=== PATIENT | male | born 1955 | race Two or more races ===

== ENCOUNTER 2025-09-08 22:04 | Inpatient (IN) | payer OTHER, MEDICARE ==
[~2025-09-08] VITALS: Ht 170.2 cm; Wt 95.0 kg
--- NOTE | 2025-09-08 22:13 | ELECTROCARDIOGRAPH REPORT ---
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
[2025-09-08] MEDS: normal saline 1000ML IV soln IVB ONE (22:19)
--- NOTE | 2025-09-08 22:27 | Physician Documentation ---
History of Present Illness General Chief Complaint: Syncope Stated Complaint: SYNCOPE Time Seen by MD: 22:20 History of Present Illness Initial Comments THE PATIENT IS A 70-YEAR-OLD MALE brought in by EMS for low blood pressure and confusion. Patient states when he returned from work around 1700 tonight he has a fevers, when his family returned this evening they found him unresponsive on the floor. EMS found the patient to have a low blood pressure and diaphoretic and he received a L of fluids prior to arrival in the emergency department. Patient denies any chest pain or shortness of breath he describes the rigors and a fever this evening. Patient has a history of hypertension patient's symptoms are moderate and persistent. Patient denies any cardiac history Medication Reconciliation Allergies: Coded Allergies: No Known Allergies (Unverified , 09/08/25) Scheduled Amlodipine* (Norvasc*), 2 TAB PO DAILY, (Reported) Losartan Potassium* (Cozaar*), 4 TAB PO DAILY, (Reported) Past Medical History Past Medical History: Hypertension Review of Systems All Other Systems at this time: Reviewed and Negative Physical Exam Physical Exam Vital Signs: Temperature: 99.9, Heart Rate: 91, Respiratory Rate: 14, BP: 104/61, Pulse Oximetry: 97, Weight: 95.000 Physical Exam VITALS: Reviewed and as above. GENERAL: Alert, no apparent distress. HEENT: Normocephalic, atraumatic, PERRL, EOMI, dry mucosa, no erythema RESPIRATORY: Lungs clear, normal breath sounds, no respiratory distress. CHEST: No accessory muscle use, no retractions CV: Regular rate, rhythm, no edema, no murmur, No: JVD GI: Soft, non-tender, bowels sounds present, no rebound, guarding, or rigidity BACK: No CVA tenderness, or swelling MUSCULOSKELETAL: No deformities, no edema SKIN: Warm and dry, no rash NEURO: Oriented x4, No motor or sensory deficit PSYCH: Normal mood and affect, no agitation Progress Progress Note Patient: KATHERIN CARREON Medical Record: [id number] [facility] : 1955, Age: 70 Sex: Male Location: ER Patient Status: REG ER Service Date/Time: 09/09/25219 Ordering Physician: PAGE WHARTON MD Exam: CTA CHEST CT ABD PELVIS History: hypotension Comparison: None TECHNIQUE: Using a slice CT scanner volumetric data acquisition of chest, abdomen and pelvis was obtained following intravenous administration of intravenous 100 ml contrast without any reported adverse effects. Axial images were reconstructed and additional sagittal and coronal images were reformatted. 3D/MIP images were performed and reviewed for reporting. Radiation Dose Information: CT Dose: CTDI volume is 30.48 mGy. Dose-length product is 2421.4 mGy*cm Findings: Vascular: There is normal caliber of thoracic and abdominal aorta without evidence of aortic dissection, intramural hematoma or aneurysm. Atherosclerotic vascular ca lcifications. Visualized supra-aortic arteries are widely patent without a focal stenosis or aneurysm. The mesenteric, and bilateral renal, iliac and femoral arteries are widely patent without any focal stenosis or aneurysm. Chest: Pulmonary Arteries: There are no filling defects within main pulmonary arteries. There is normal dimensional of main PA. Lungs: There is no peripheral pulmonary infarction, consolidation, pleural effusion, or right heart strain. There is no pneumothorax or pneumomediastinum. Moderate bilateral lower lobe atelectasis. Aorta: There is normal caliber of thoracic aorta without evidence of aortic dissection, intramural hematoma or aneurysm. Lymph Nodes: There is no significant intrathoracic or axillary lymphadenopathy on CT size criteria. Lower Neck: Visualized portions of the thyroid gland are unremarkable. Mediastinum: Heart size is normal. There is no pericardial effusion. Musculoskeletal: No aggressive focal bony lesions, acute fractures or dislocation. Chest wall: Unremarkable Abdomen and Pelvis: Liver: The liver is normal in size. Hepatic steatosis. No focal lesions. Normal hepatic vascular enhancement. Gallbladder and Biliary Tree: Mild gallbladder distention and wall thickening versus pericholecystic edema. Spleen: Unremarkable Pancreas: The pancreas is normal in appearance without focal lesions or abnormal enhancement. Adrenal Glands: Unremarkable Kidneys: Kidneys demonstrate normal symmetric enhancement without focal lesions, calculi or hydronephrosis. Bladder: Unremarkable Bowel: Small sliding-type hiatal hernia. The stomach is grossly normal in appearance. Small bowel and colon are normal in caliber and distribution. The appendix is not visualized; however, no secondary findings of acute appendicitis identified. Ascites: Absent Lymphadenopathy: No mesenteric, retroperitoneal or periportal lymphadenopathy. Abdominal Wall and Mesentery: Unremarkable. Vasculature: The visualized abdominal aorta is normal in size and caliber. Atherosclerotic vascular calcifications. Abdominal and pelvic vessels demonstrate normal enhancement. Pelvic Organs: The prostate is enlarged, measuring 5.8 cm transverse. Bilateral fat containing inguinal hernias. Musculoskeletal: No aggressive focal bony lesions, acute fractures or di slocation. IMPRESSION: 1. No evidence of acute aneurysm, dissection, or intramural hematoma. 2. No evidence of pulmonary embolism. 3. Mild gallbladder distention and wall thickening versus pericholecystic edema. 4. Hepatic steatosis. 5. Small sliding-type hiatal hernia. 6. Prostatomegaly. Electronically Signed by:JAMEY URIBE MD Date & Time: 09/09/25322 Dictated by: JAMEY URIBE MD Dictation date and time: 09/09/25322 Primary Care Provider: NO PRIMARY CARE PROVIDER cc: PAGE WHARTON MD ~ Results/Orders Results/Orders Orders - PAGE WHARTON MD Culture Blood (09/08/25 22:10) Chest,Single View (09/08/25 22:10) Monitor (09/08/25 22:10) Oxygen (09/08/25 22:10) Saline Lock (09/08/25 22:10) Straight Cath For Urine Sample (09/08/25 22:10) Cta Chest Ct Abd Pelvis (09/09/25 02:20) Ct Head (09/09/25 02:20) Page Hospitalist (09/09/25 04:43) Fill Out Med Reconciliation (09/09/25 04:43) Completed Orders - PAGE WHARTON MD Cbc/Diff (09/08/25 22:10) Chest,Single View (09/08/25 22:10) Electrocardiogram (09/08/25 22:10) Procalcitonin (09/08/25 22:10) BMP (09/08/25 22:10) Hs Troponin I W Calculations (09/08/25 22:10) Hs Troponin I W Calculations (09/09/25 00:10) Hs Troponin I W Calculations (09/09/25 01:10) Lacticsepsis (09/08/25 22:10) Normal Saline 1000ml (0.9% Sodium Chlori (09/08/25 22:15) Ceftriaxone 2gm/D5w 50ml Bag (Rocephin 2 (09/08/25 22:50) Aspirin 81mg Chew Tablet (Aspirin 81mg C (09/08/25 23:25) Lactic,2hr (09/09/25 00:06) Normal Saline 1000ml (0.9% Sodium Chlori (09/09/25 00:25) Ua W/Microscopic, Cult If Ind (09/08/25 23:31) Dexamethasone Inj (Decadron 10mg/Ml Inj) (09/09/25 00:50) D-Dimer (09/09/25 00:51) Stat Ekg (09/09/25 ) Normal Saline 1000ml (0.9% Sodium Chlori (09/09/25 01:05) Normal Saline 1000ml (0.9% Sodium Chlori (09/09/25 01:30) Cta Chest Ct Abd Pelvis (09/09/25 02:20) Iohexol 350mg/Ml 100ml (Omnipaque 350mg/ (09/09/25 01:48) Ct Head (09/09/25 02:20) Man Diff (09/08/25 22:18) TSH (09/09/25 02:42) Glycopyrrolate Inj (Robinul Inj) (09/09/25 02:45) Calcium Gluconate Inj. (Calcium Gluconat (09/09/25 03:00) Cbc/Diff (09/09/25 03:30) Lacticsepsis (09/09/25 03:30) Calcium Gluc 1gm/50ml Nacl,Iso (Calcium (09/09/25 03:25) Calcium Gluc 1gm/50ml Nacl,Iso (Calcium (09/09/25 03:33) Glucagon, Human Recombinant (Glucagen In (09/09/25 04:10) Normal Saline 1000ml (0.9% Sodium Chlori (09/09/25 04:20) Vital Signs 09/08/25 09/08/25 09/08/25 09/08/25 22:06 22:23 22:30 23:30 Temp 99.9 Pulse 91 88 87 Resp 14 16 16 18 B/P (MAP) 104/61 112/61 (78) 102/66 (78) Pulse Ox 97 98 97 O2 Flow Rate 0 0 09/09/25 09/09/25 09/09/25 00:30 01:35 02:06 Pulse 89 73 81 Resp 16 18 16 B/P (MAP) 88/51 (63) 84/52 (63) 92/56 (68) Pulse Ox 96 95 97 O2 Flow Rate 0 0 0 Laboratory Tests Test 09/08/25 22:18 09/08/25 23:31 09/09/25 00:20 09/09/25 00:48 White Blood Count 2.5 L Red Blood Count 4.27 L Hemoglobin 13.0 L Hematocrit 38.1 L Mean Corpuscular Volume 89.3 Mean Corpuscular Hemoglobin 30.5 Mean Corpuscular Hemoglobin Concent 34.1 Red Cell Distribution Width 13.5 Platelet Count 130 L Mean Platelet Volume 9.0 Neutrophils (%) (Auto) 87.6 H Lymphocytes (%) (Auto) 11.1 L Monocytes (%) (Auto) 0.5 L Eosinophils (%) (Auto) 0.3 Basophils (%) (Auto) 0.5 Neutrophils # (Auto) 2.2 Lymphocytes # (Auto) 0.3 L Monocytes # (Auto) 0.0 Eosinophils # (Auto) 0.0 Basophils # (Auto) 0.0 CBC Comment Differential Total Cells Counted 100 Neutrophils % (Manual) 80.0 H Lymphocytes % (Manual) 15.0 L Monocytes % (Manual) 4.0 Eosinophils % (Manual) 1.0 Platelet Estimate Decreased Red Blood Cell Morphology Normal Basophilic Stippling Sodium Level 143 Potassium Level 3.4 L Chloride Level 111 H Carbon Dioxide Level 20.4 L Anion Gap 12 Blood Urea Nitrogen 20 H Creatinine 1.34 H Estimated GFR/1.73 m2 53 BUN/Creatinine Ratio 14.9 Glucose Level 102 Lactic Acid Level 5.2 *H 3.6 H Calcium Level 7.5 L Troponin I High Sensitivity 150 *H 502 *H 501 *H Albumin 2.9 L Procalcitonin 1.93 H Chemistry Comments Urine Specimen Description Voided Urine Color Yellow Urine Clarity Clear Urine pH 6.0 Urine Specific [place] 1.010 Urine Protein 30 H Urine Glucose (UA) Negative Urine Ketones Negative Urine Occult Blood Trace-intact Urine Nitrite Negative Urine Bilirubin Negative Urine Urobilinogen 0.2 Urine Leukocyte Esterase Negative Urine RBC 0-2 Urine WBC 0-4 Urine Squamous Epithelial Cells None seen Urine Bacteria Few Urine Culture Indicated Not ind Volume Urine Centrifuged 10 ml Urine Comment Troponin I High Sens Percent Delta 234 0 Troponin I Hi Sens Absolute Change 352 -1 Thyroid Stimulating Hormone (TSH) 2.57 Test 09/09/25 01:02 09/09/25 04:15 D-Dimer 5.11 H D-Dimer Comment White Blood Count 10.6 Red Blood Count 3.95 L Hemoglobin 12.0 L Hematocrit 35.6 L Mean Corpuscular Volume 90.0 Mean Corpuscular Hemoglobin 30.3 Mean Corpuscular Hemoglobin Concent 33.7 Red Cell Distribution Width 14.1 Platelet Count 104 L Mean Platelet Volume 9.3 Neutrophils (%) (Auto) 92.3 H Lymphocytes (%) (Auto) 4.3 L Monocytes (%) (Auto) 3.1 Eosinophils (%) (Auto) 0.1 Basophils (%) (Auto) 0.2 Neutrophils # (Auto) 9.8 H Lymphocytes # (Auto) 0.4 L Monocytes # (Auto) 0.3 Eosinophils # (Auto) 0.0 Basophils # (Auto) 0.0 CBC Comment Lactic Acid Level 3.7 H Microbiology Date/Time Source Procedure Growth Status 09/08/25 22:21 Blood Hand Right Blood Culture - Preliminary Positive Culture Resulted EKG/XRAY/CT/US/VASC/MRI Chest X-Ray : Additional Comments Patient: KATHERIN CARREON Medical Record: [id number] [facility] : 1955, Age: 70 Sex: Male Location: ER Patient Status: REG ER Service Date/Time: 09/08/252209 Ordering Physician: PAGE WHARTON MD Exam: CHEST,SINGLE VIEW EXAM: DI CHEST,SINGLE VIEW CLINICAL HISTORY: SYNCOPE TECHNIQUE: Single AP view of the chest WID: COMPARISON: None FINDINGS: Lines and tubes: None Chest: The heart size and pulmonary vasculature is within normal limits. No pleural effusion, pneumothorax, or consolidation. The osseous structures are grossly intact. Multilevel thoracic spondylosis. IMPRESSION: 1. No acute cardiopulmonary abnormality. Electronically Signed by:MOHINDER BAINS MD Date & Time: 09/08/252236 Dictated by: MOHINDER BAINS MD Dictation date and time: 09/08/252228 Primary Care Provider: NO PRIMARY CARE PROVIDER cc: PAGE WHARTON MD ~ CT : Impression Patient: KATHERIN CARREON Medical Record: [id number] [facility] : 1955, Age: 70 Sex: Male Location: ER Patient Status: [facility] ER Service Date/Time: 09/09/25219 Ordering Physician: PAGE WHARTON MD Exam: CT HEAD EXAM: CT CT HEAD INDICATION: SYNCOPE TECHNIQUE: CT of the head without intravenous contrast. Radiation Dose : 1. Head: CT Dose: CTDI volume is 65.41 mGy. Dose-length product is 1233.59 mGy*cm The dose indicators for CT are the volume Computed Tomography (CT) Dose Index (CTDIvol) and the Dose Length Product (DLP), and are measured in units of mGy and mGy-cm, respectively. These indicators are not patient dose, but values generated from the CT scanner acquisition factors. The report includes radiation exposure data for exposures received during this examination. COMPARISON: None FINDINGS: There is no evidence of acute intracranial hemorrhage, extra-axial collection, mass effect, midline shift, herniation or hydrocephalus. The ventricles, sulci and cisterns are age appropriate. The woods-white differentiation is intact. Patchy periventricular and subcortical white matter hypoattenuation is nonspecific but may be related to small vessel ischemic disease. The visualized paranasal sinuses and mastoid air cells are clear. The surrounding soft tissues and osseous structures are unremarkable. IMPRESSION: 1. No acute intracranial abnormality. Radiation optimization: All CT scans at this facility use at least one of these dose optimization techniques: automated exposure control mA and/or kV adjustment per patient size (includes targeted exams where dose is matched to clinical indication) or iterative reconstruction. Electronically Signed by:JAMEY URIBE MD Date & Time: 09/09/25239 Dictated by: JAMEY URIBE MD Dictation date and time: 09/09/25239 Primary Care Provider: NO PRIMARY CARE PROVIDER cc: PAGE WHARTON MD ~ Medical Decision Making Additional information obtaine: old records Findings Patient is a 12 lead EKG demonstrates normal sinus rhythm rate of [address] abnormalities and normal axis the time of the interpretation was 01/13/2009 EKG was interpreted has a borderline EKG. The patient presents to the emergency department after being found initially unresponsive by family EM on EMS arrival the patient had no radial pulses but did have a carotid pulse was breathing on his own and was found to be hypotensive the patient was given IV fluids and his mental status improved. The patient denied any active chest pain he states he felt febrile and was having rigors prior to the episode of becoming unresponsive. The patient denies any shortness of breath or chest pain. The patient has had significant and persistent hypotension without any tachycardia. The patient was given IV fluids 5 L here in the emergency department he was also given calcium as well as glucagon on the off chance that he took too many of his amlodipine and this would be contributing to his hypotension he was also given a dose of ceftriaxone for possible septic shock. There was no obvious source of infection on exam his lungs were clear the patient does appear to have an slightly elevated procalcitonin initially had a low white blood cell count repea t WBCs have increased he however has not produced a source of infection at this time the patient will be admitted to the hospitalist for lactic acidosis and hypotension case has been discussed with the hospitalist pulses nuclear monitoring technician was interpreted as a sinus rhythm. His pulse oximetry was interpreted as normal and adequate Differential Diagnosis Dehydration, cardiogenic shock, septic shock, Departure Impression: Primary Impression: Syncope Qualified Codes: R55 - Syncope and collapse Additional Impressions: Lactic acidosis Hypotension Qualified Codes: I95.9 - Hypotension, unspecified Referrals: NO PRIMARY CARE PROVIDER (PCP) Critical Care Note Total Time (mins): 90 Critical Care Note The very real possibility of a deterioration of this patient's condition required the highest level of my preparedness for sudden, emergent intervention. I provided critical care services, which included medication orders, frequent reevaluations of the patient's condition and response to treatment, ordering and reviewing test results, and discussing the case with various consultants. Excludes time spent performing separately billable procedures. The critical care time associated with the care of the patient was 90 minutes. Signature Scribe Signature: No scribe Attestation: The note accurately reflects work and decisions made by me.Page Wharton MD 09/10/25 03:54 PAGE WHARTON MD Sep 08, 2025 22:27
[2025-09-08 22:40] LABS: MEAN PLATELET VOLUME 9.0 FL (7.4-10.4); RED CELL DISTRIBUTION WIDTH 13.5 % (11.5-14.5)
--- NOTE | 2025-09-08 22:40 | RADIOLOGY REPORT ---
EXAM: DI CHEST,SINGLE VIEW CLINICAL HISTORY: SYNCOPE TECHNIQUE: Single AP view of the chest WID: COMPARISON: None FINDINGS: Lines and tubes: None Chest: The heart size and pulmonary vasculature is within normal limits. No pleural effusion, pneumothorax, or consolidation. The osseous structures are grossly intact. Multilevel thoracic spondylosis. IMPRESSION: 1. No acute cardiopulmonary abnormality.
[2025-09-08 22:55] LABS: CREATININE 1.34 MG/DL (0.60-1.10); TOTAL CARBON DIOXIDE 20.4 MMOL/L (24-32); eCRCL 49 ML/MIN; eGFR 53 ML/MIN
[2025-09-08] MEDS: CefTRIAXone 2gm/D5W 50ml BAG 50 ML IV ONE (23:09)
[2025-09-08 23:54] LABS: LEUKOCYTE ESTERASE ,URINE NEGATIVE (Neg); NITRITES, URINE NEGATIVE (Neg); OCCULT BLOOD,URINE TRACE-INTACT (Neg)
[2025-09-09] MEDS: normal saline 1000ML IV soln IVB ONE ×4 (00:24→04:44)
[2025-09-09 00:38] LABS: UA COLLECTION TYPE VOIDED
[2025-09-09 00:41] LABS: SQUAMOUS EPITHELIAL CELL,UR NONE SEEN /LPF (FEW)
--- NOTE | 2025-09-09 01:01 | ELECTROCARDIOGRAPH REPORT ---
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
[2025-09-09] MEDS: dexamethasone sod phosphate 10mg/ml inj IV STA (01:05)
[2025-09-09 02:36] LABS: EOSINOPHILS % (MANUAL) 1.0 % (0-6); LYMPHOCYTES % (MANUAL) 15.0 % (21-51); MONOCYTES % (MANUAL) 4.0 % (2-12); NEUTROPHILS % (MANUAL) 80.0 % (42-75)
[2025-09-09 02:37] LABS: PLATELET ESTIMATE DECREASED
--- NOTE | 2025-09-09 02:42 | RADIOLOGY REPORT ---
EXAM: CT CT HEAD INDICATION: SYNCOPE TECHNIQUE: CT of the head without intravenous contrast. Radiation Dose : 1. Head: CT Dose: CTDI volume is 65.41 mGy. Dose-length product is 1233.59 mGy*cm The dose indicators for CT are the volume Computed Tomography (CT) Dose Index (CTDIvol) and the Dose Length Product (DLP), and are measured in units of mGy and mGy-cm, respectively. These indicators are not patient dose, but values generated from the CT scanner acquisition factors. The report includes radiation exposure data for exposures received during this examination. COMPARISON: None FINDINGS: There is no evidence of acute intracranial hemorrhage, extra-axial collection, mass effect, midline shift, herniation or hydrocephalus. The ventricles, sulci and cisterns are age appropriate. The woods-white differentiation is intact. Patchy periventricular and subcortical white matter hypoattenuation is nonspecific but may be related to small vessel ischemic disease. The visualized paranasal sinuses and mastoid air cells are clear. The surrounding soft tissues and osseous structures are unremarkable. IMPRESSION: 1. No acute intracranial abnormality. Radiation optimization: All CT scans at this facility use at least one of these dose optimization techniques: automated exposure control mA and/or kV adjustment per patient size (includes targeted exams where dose is matched to clinical indication) or iterative reconstruction.
[2025-09-09] MEDS: glycopyrrolate 0.2mg/ml inj IV ONE (02:52)
[2025-09-09] MEDS ORDERED: calcium gluconate inj. 3 GM in normal saline 100ml IV soln 100 ML IV ONE (03:00)
[2025-09-09] MEDS ORDERED: CALCIUM GLUC 1gm/50ml NACL,iso 50 ML IV ONE (03:25)
--- NOTE | 2025-09-09 03:26 | RADIOLOGY REPORT ---
History: hypotension Comparison: None TECHNIQUE: Using a slice CT scanner volumetric data acquisition of chest, abdomen and pelvis was obtained following intravenous administration of intravenous 100 ml contrast without any reported adverse effects. Axial images were reconstructed and additional sagittal and coronal images were reformatted. 3D/MIP images were performed and reviewed for reporting. Radiation Dose Information: CT Dose: CTDI volume is 30.48 mGy. Dose-length product is 2421.4 mGy*cm Findings: Vascular: There is normal caliber of thoracic and abdominal aorta without evidence of aortic dissection, intramural hematoma or aneurysm. Atherosclerotic vascular calcifications. Visualized supra-aortic arteries are widely patent without a focal stenosis or aneurysm. The mesenteric, and bilateral renal, iliac and femoral arteries are widely patent without any focal stenosis or aneurysm. Chest: Pulmonary Arteries: There are no filling defects within main pulmonary arteries. There is normal dimensional of main PA. Lungs: There is no peripheral pulmonary infarction, consolidation, pleural effusion, or right heart strain. There is no pneumothorax or pneumomediastinum. Moderate bilateral lower lobe atelectasis. Aorta: There is normal caliber of thoracic aorta without evidence of aortic dissection, intramural hematoma or aneurysm. Lymph Nodes: There is no significant intrathoracic or axillary lymphadenopathy on CT size criteria. Lower Neck: Visualized portions of the thyroid gland are unremarkable. Mediastinum: Heart size is normal. There is no pericardial effusion. Musculoskeletal: No aggressive focal bony lesions, acute fractures or dislocation. Chest wall: Unremarkable Abdomen and Pelvis: Liver: The liver is normal in size. Hepatic steatosis. No focal lesions. Normal hepatic vascular enhancement. Gallbladder and Biliary Tree: Mild gallbladder distention and wall thickening versus pericholecystic edema. Spleen: Unremarkable Pancreas: The pancreas is normal in appearance without focal lesions or abnormal enhancement. Adrenal Glands: Unremarkable Kidneys: Kidneys demonstrate normal symmetric enhancement without focal lesions, calculi or hydronephrosis. Bladder: Unremarkable Bowel: Small sliding-type hiatal hernia. The stomach is grossly normal in appearance. Small bowel and colon are normal in caliber and distribution. The appendix is not visualized; however, no secondary findings of acute appendicitis identified. Ascites: Absent Lymphadenopathy: No mesenteric, retroperitoneal or periportal lymphadenopathy. Abdominal Wall and Mesentery: Unremarkable. Vasculature: The visualized abdominal aorta is normal in size and caliber. Atherosclerotic vascular calcifications. Abdominal and pelvic vessels demonstrate normal enhancement. Pelvic Organs: The prostate is enlarged, measuring 5.8 cm transverse. Bilateral fat containing inguinal hernias. Musculoskeletal: No aggressive focal bony lesions, acute fractures or dislocation. IMPRESSION: 1. No evidence of acute aneurysm, dissection, or intramural hematoma. 2. No evidence of pulmonary embolism. 3. Mild gallbladder distention and wall thickening versus pericholecystic edema. 4. Hepatic steatosis. 5. Small sliding-type hiatal hernia. 6. Prostatomegaly.
[2025-09-09] MEDS: CALCIUM GLUC 1gm/50ml NACL,iso 50 ML IV SCH (03:42)
[2025-09-09 04:35] LABS: MEAN PLATELET VOLUME 9.3 FL (7.4-10.4); RED CELL DISTRIBUTION WIDTH 14.1 % (11.5-14.5)
[2025-09-09] MEDS: glucagon, human recombinant 1mg kit IM ONE (04:45)
[2025-09-09] MEDS ORDERED: potassium Cl 40MEQ/1/2NS 520ml 520 ML IV PRN (06:10)
[2025-09-09] MEDS ORDERED: potassium Cl 20 mEq SR tablet PO PRN (06:10)
[2025-09-09] MEDS ORDERED: magnesium Cl slow-release 64mg tablet PO PRN (06:10)
[2025-09-09] MEDS ORDERED: magnesium sulf-water 4G/100mL 100 ML IV PRN (06:10)
[2025-09-09] MEDS ORDERED: magnesium sulf-water 2g/50mL 50 ML IV PRN (06:10)
--- NOTE | 2025-09-09 06:21 | HISTORY AND PHYSICAL-Residence ---
History & Physical Providers to CC Resident Creating Document: MARCELLA CHEATHAMDEIRDRE ~ History of Present Illness Reason for Admit\Complaint: hypotension, syncope History of Present Illness 70 years old male with history of hypertension brought to the ED by EMS due to syncope. Patient reported yesterday morning he did not feel good and he had shivering and chills, came back home and took two ibuprofen and went to bed when he woke up he was on the floor. is on the bedside and reported they was not at home and when they came back they found him on the floor, sweating and confused they called EMS and the systolic blood pressure reported 70, no any tongue biting or urinary or stool incontinency reported. Patient got his conscious after 20-30 minutes. Patient denied any chest pain shortness of breaths abdominal pain any changing in urinary habits or bowel movement. He is taking lisinopril and amlodipine for blood pressure medication otherwise he is not taking any medication. He denied recent travel, any sick contact. Allergies: Coded Allergies: No Known Allergies (Unverified , 09/08/25) Past Medical History Past Medical History Hypertension Past Surgical History Surgical History Comment Herniorrhaphy 2020 Appendectomy Family History Family History: FH: dementia (Father,) FH: diabetes mellitus (Moderate,) Past Social History Smoking: Quit greater than 1 year (Quit smoking 40 years ago, smoked for about 10 years) Alcohol Use: Rarely Drug Use: None ROS ROS Constitutional: Chills and shivering HEENT: No blurring of the vision, No sore throat, epistaxis, tinnitus Cardiovascular: no chest pain/discomfort, palpitations, no syncope. No pedal edema Respiratory: No sob, cough,, hemoptysis Gastrointestinal: no abdominal pain, no nausea, vomiting. no diarrhea, no constipation, melena. Genitourinary: No frquency, urgency, incontinence, nocturia. No dysuria, hematuria Musculoskeletal: No arthralgia, myalgia Endocrine: No polydipsia, polyuria. No heat or cold intolerance Neurologic: Syncope as HPI Psychiatric: No hallucinations/delusions, no anhedonia, no suicidal ideation\ Hematologic: No bleeding or bruises Exam Vitals: Vital Signs Date Time Temp Pulse Resp B/P (MAP) Pulse Ox O2 Delivery O2 Flow Rate FiO2 09/09/25 02:06 81 16 92/56 (68) 97 0 09/08/25 22:06 99.9 General: General: Awake and Alert, no acute distress. HEENT: Conjunctiva pink, Sclera clear, Mucus Membranes moist. Neck: Supple without masses and tenderness. Resp: Lungs clear to auscultation bilaterally. Heart: Regular Rate and rhythm, normal S1 and S2 Abdomen: Soft and non tender no organomegaly Extremities: No cyanosis,clubbing or edema. Skin: Warm and Dry. Neurological: Speech is clear, alert, and oriented x 4, no gross neurological deficits Diagnostic Data Last Recorded Lab Results: 09/09/25 0415 09/08/25 2218 Diagnostic Data: Laboratory Tests Test 09/09/25 01:02 D-Dimer 5.11 MG/L FEU (0-0.50) H D-Dimer Comment Advance Care Planning Advanced Care plannin - 30 Minutes Additional Plan 70 years old male with history of hypertension brought to the ED due to syncope, severe hypotension Severe hypotension/ shock could be due to septic, unkown source of infection Initial blood pressure in the ED was 88/55, during his visit in the ED he received 4 L normal saline, and glycopyrrolate 0.1 mg IV however systolic blood pressure was still around 90, with concern of calcium channel abad overdose patient received calcium gluconate 3 mg, gluconate 2 g IM BP came up to 110, will continue monitoring Syncope Lactic acidosis, possible bacterimia/sepsis ( pending ) WBC 2.5 with left shift, trending up to 10.6, elevated procalcitonin 1,9, elevated lactic acid 5.2 trending down to 3 D-dimer was elevated 5.11, urine negative for UTI CX-ray: No acute cardiopulmonary abnormality. Head CT scan: No acute intracranial abnormality. CTA: 1. No evidence of acute aneurysm, dissection, or intramural hematoma. 2. No evidence of pulmonary embolism. 3. Mild gallbladder distention and wall thickening versus pericholecystic edema. 4. Hepatic steatosis. 5. Small sliding-type hiatal hernia. 6. Prostatomegaly. One dose ceftriaxone received in the ED, we will started on Zosyn Blood culture is pending, echocardiography ordered liver function test is pending Elevated troponin 150, 502, 501 we will continue trending Patient denied any chest pain shortness of breaths EKG showed: Sinus rhythm, rate 62, The troponin could be due to transient hypoxemia/ hypotension Repeat the troponin Acute kidney failure BUN 20, creatinine 1.3 will continue monitoring Code Status: full DVT prophylaxis: heparin Analgesia/sedation: none Line/tube: peripheral GI prophylaxis: none Nutrition: regular PT: Y Prognosis: Guarded Disposition: Continue monitoring patient in PCU floor with telemetry Marcella Cheatham MD Internal Medicine Resident Date of Service: Sep 09, 2025 Billing Provider: KOSTA CLEMENTE MD, ELAHE, RES Sep 09, 2025 06:21
[2025-09-09] MEDS: K and/or MAG REPLACEMENT MC SCH (08:00)
[2025-09-09] MEDS: docusate sod 100mg capsule PO SCH (08:00)
[2025-09-09] MEDS: normal saline 1000ml 1,000 ML IV SCH (08:36)
[2025-09-09] MEDS: piperacillin/tazo 3.375gm/50ml 50 ML IV SCH (08:48)
[2025-09-09] MEDS ORDERED: LOSA-415 PO (08:49)
[2025-09-09] MEDS ORDERED: AMLO2.5T2 PO (08:49)
[2025-09-09 09:01] LABS: ETHANOL < 10 MG/DL (<10)
[2025-09-09 11:00] VITALS: BP 117/71; PULSE 70; RESP 16; TEMP 98.5; O2SAT 96
--- NOTE | 2025-09-09 13:08 | PROGRESS NOTE- Residence ---
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 He was brought to the emergency department by EMS after being found unconscious at home last night. Today, he had reported feeling unwell own and went home from work around 4:30 p.m.. Was sitting at home, he experienced chills, rigor, profuse sweating, general malaise. Later that evening, at approximately 8:00 p.m., his daughter found him unresponsive on the floor and called EMS. Upon arrival to the ED, he was noted to be hypotensive and was subsequently admitted. This morning, the patient is hemodynamically stable and alert. Objective Vital Signs Date Time Temp Pulse Resp B/P (MAP) Pulse Ox O2 Delivery O2 Flow Rate FiO2 09/09/25 11:00 98.5 70 16 117/71 (86) 96 Room Air 09/09/25 06:47 0 General: Awake and Alert, no acute distress. HEENT: Conjunctiva pink, Sclera clear, Mucus Membranes moist. Neck: Supple without masses and tenderness. Resp: Lungs clear to auscultation bilaterally. Heart: Regular Rate and rhythm, normal S1 and S2 Abdomen: Soft and non tender no organomegaly Extremities: No cyanosis,clubbing or edema. Skin: Warm and Dry. 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 He was brought to the emergency department by EMS after being found unconscious at home last night. Today, he had reported feeling unwell own and went home from work around 4:30 p.m.. Was sitting at home, he experienced chills, rigor, profuse sweating, general malaise. Later that evening, at approximately 8:00 p.m., his daughter found him unresponsive on the floor and called EMS. Upon arrival to the ED, he was noted to be hypotensive and was subsequently admitted. This morning, the patient is hemodynamically stable and alert. Plan Plan 1. Sepsis with septic shock, POA Bacteremia; source unclear Now hemodynamically stable Presented with a low C, chills, rigors, diaphoresis; found to be hypertensive on arrival Lactic acidosis, elevated procalcitonin, hemodynamic instability Received 4 L of NS with improvement in BP and mental status Blood cultures from both arms positive Gram-negative rods consistent with true bacteremia and likely infectious source of sepsis Continue IV broad-spectrum antibiotics; Zosyn Continue IV hydration; NS 100 mL/hour Pending culture sensitivity Repeat lactate and blood cultures in 48 hours Echo pending 2. Syncope/LOC Likely secondary to hypotension and decreased perfusion from septic shock Continue telemetry monitoring for arrhythmia EKG and troponins; ruled out cardiac etiology Non-con head CT is negative CTA negative for PE, No evidence of acute aneurysm, dissection, or intramural hematoma. 3. Transaminitis, Hepatic steatosis on CTA. Etiology likely combination of shock liver and fatty liver AST/ALT 108/99, bilirubin 1.6, Continue supportive care Monitor liver functions 4. Elevated troponins, most likely type 2 [place]/demand ischemia EKG showed: Sinus rhythm, rate 62, Continue managing sepsis Continue supportive management Sepsis with septic shock, elevated liver enzymes, and mild gallbladder distention with wall thickening on CTA which may suggest biliary stasis/inflammation. These findings raise suspicion for ascending cholangitis. I ordered the abdominal ultrasound, please follow. Continue broad-spectrum antibiotics, IV hydration, and pain management. No clear alternate infectious source (urine, lung). Gall bladder/biliary tree is on top of my differentials. 5. Acute kidney injury, most likely prerenal, renal tubular stasis Creatinine elevated 1.34 Continue IV hydration Monitor BMP 6. BPH, stable CTA reveals prostatomegaly Status: Full code DVT prophylaxis: Allyson Islas Internal Medicine Resident, PGY-3 Date of Service: Sep 09, 2025 Billing Provider: CHASE MINOR MD Common Visit Codes: [id number] INP/OBS CARE(HIGH) WILLA ISLAS, RES Sep 09, 2025 13:08 CHASE MINOR MD Sep 11, 2025 14:04
[2025-09-09 15:00] VITALS: BP 126/71; PULSE 65; RESP 20; TEMP 98.9; O2SAT 97
--- NOTE | 2025-09-09 15:33 | RADIOLOGY REPORT ---
ULTRASOUND ABDOMEN, LIMITED RIGHT UPPER QUADRANT: REASON FOR EXAM: Elevated liver enzymes TECHNIQUE: Real-time sector scans in the transverse and longitudinal planes were obtained through the right upper quadrant of the abdomen. FINDINGS: The liver is diffusely echogenic. There is no intrahepatic biliary ductal dilatation. There is an ill-defined area of echogenicity with dirty shadowing at the posterior aspect of the left lobe of the liver likely representing air within a bowel loop. There is hepatopetal flow in the portal vein. The common bile duct measures 5 mm. There are numerous tiny shadowing gallstones. The gallbladder wall is thickened at 4 mm. There is pericholecystic edema. There is no sonographic Benson's sign. The pancreas is obscured by bowel gas. The right kidney measures 11.7 cm. No hydronephrosis or nephrolithiasis is identified. There is no evidence of right renal mass or cyst. The visualized portions of the abdominal aorta demonstrate no evidence of aneurysmal dilatation. The visualized inferior vena cava is unremarkable. There is no free fluid identified in the right upper quadrant. IMPRESSION: The liver is diffusely echogenic which may be secondary to steatosis or another diffuse hepatic process. Correlate clinically and with liver function tests. Cholelithiasis with mild gallbladder wall thickening and pericholecystic edema. No sonographic benson's sign. Findings remain concerning for possible acute versus chronic cholecystitis. Correlate clinically.
[2025-09-09 18:00] VITALS: BP 135/77; PULSE 58; RESP 18; TEMP 99; O2SAT 99
--- NOTE | 2025-09-09 18:41 | VASCULAR REPORT ---
ULTRASOUND CAROTID DUPLEX BILATERAL REASON FOR EXAM: Syncope. Hypertension. COMPARISON: None TECHNIQUE: Using real-time freeze-frame technique with a high-frequency small parts transducer, multiple longitudinal and transverse sections were obtained. Simultaneous color flow Doppler imaging was performed. FINDINGS: There is mild calcified plaque at both carotid bulbs. Waveforms are normal. Flow is laminar throughout. Peak systolic velocities as well as ICA/CCA ratios are normal. Flow through the vertebral and external carotid arteries is antegrade bilaterally. PEAK SYSTOLIC VELOCITIES (cm/sec): RIGHT: CCA 58 Proximal ICA 71 Mid ICA 83 Distal ICA 79 ECA 84 ICA/CCA ratio 1.4 LEFT: CCA 60 Proximal ICA 74 Mid ICA 79 Distal ICA 73 ECA 74 ICA/CCA ratio 1.3 IMPRESSION: Mild atherosclerotic disease with no hemodynamically significant stenosis. Any narrowing is less than 50%. Measurement of carotid stenosis is based on velocity parameters that correlate the residual internal carotid diameter with that of the more distal vessel in accordance with the [place] Symptomatic Carotid Endarterectomy Trial (NASCET).
[2025-09-09] MEDS: enoxaparin 40mg/0.4ml syringe SUBCUT SCH (19:40)
--- NOTE | 2025-09-09 19:49 | CARDIOLOGY REPORT ---
APPROVED REPORT EXAM: Comprehensive 2D, Doppler, and color-flow Echocardiogram. Patient Location: 302 Blood Pressure: 108/74 mmHg Heart Rate: 64 bpm Indications Syncope Shortness of Breath Troponin: 429 Hypertension NO [employer]ICE [employer]IVER NO Previous ECHO 2D Dimensions LA Diam 3.8 cm IVSd 0.8 (0.7-1.1cm) LVDd 4.8 cm PWd 1.1 (0.7-1.1cm) IVSs 1.3 (0.8-1.2cm) LVDs 2.8 (2.5-4.0cm) PWs 1.3 (0.8-1.2cm) LVOT Diameter 1.94 (1.8-2.4cm) LVEF(%) 71.1 (>50%) Ao Asc Diam. 2.74 cm IVC 23.97 mm FS (%) 40.4 % SV 75.3 ml CO 4.8 L/min M-Mode Dimensions Left Atrium(MM) 4.48 (2.5-4.0cm) Aortic Root 3.22 (2.2-3.7cm) Aortic Cusp Exc 1.91 (1.5-2.0cm) MV EPSS 0.6 (<0.5cm) Aortic Valve AoV Peak Jose Miguel. 155.9 cm/s AoV VTI 28.7 cm AO Peak GR. 9.7 mmHg AO Mean GR. 6 mmHg LVOT VTI 25.40 cm LVOT Peak Jose Miguel. 118.8 cm/s JAYA(VTI)/BSA 2.61 cm2/m2 JAYA (VTI) 2.61 cm2 AI P 1/2 Time 564 ms AV DI 0.88 % Mitral Valve MV E Velocity 112.1 cm/s MV Peak Gr. 5 mmHg MV DECEL TIME 196 ms MV A Velocity 86.3 cm/s MV PHT 60 ms E/A Ratio 1.3 MVA (PHT) 3.67 cm2 MV VMax 116.4 cm/s TDI Lateral E' P. V 10.03 cm/s E/Lateral E' 11.2 Tricuspid Valve TR P. Velocity 251 cm/s RAP ESTIMATE 10 mmHg TR Peak Gr. 25 mmHg RVSP 35 mmHg LEFT VENTRICLE Normal LV size and wall thickness. Overall systolic function is normal. LVEF is 70%. RIGHT VENTRICLE Right ventricle is mildly dilated with adequate function. Elevated right heart pressures with an RVSP of 35 mmHg. ATRIA The left atrium size is normal. AORTIC VALVE Trileaflet AV appears mildly sclerotic without stenosis. Mild to moderate insufficiency. MITRAL VALVE Mild mitral annular calcification without stenosis. Trace regurgitation. TRICUSPID VALVE The tricuspid valve is normal in structure with mild regurgitation. PULMONIC VALVE Pulmonic valve is grossly normal in structure with physiologic insufficiency. GREAT VESSELS The aortic root is normal in size. The ascending aorta is normal in size. IVC is dilated and collapses greater than 50% with inspiration. PERICARDIUM Normal pericardium. No effusion. Anterior epicardial fat pad is present. Other Information Study Quality: Adequate Conclusion Normal LV size and wall thickness. Overall systolic function is normal. LVEF is 70%. Right ventricle is mildly dilated with adequate function. Elevated right heart pressures with an RVSP of 35 mmHg. The left atrium size is normal. Trileaflet AV appears mildly sclerotic without stenosis. Mild to moderate insufficiency. Mild mitral annular calcification without stenosis. Trace regurgitation. The tricuspid valve is normal in structure with mild regurgitation. Normal pericardium. No effusion. Anterior epicardial fat pad is present.
[2025-09-09 22:00] VITALS: BP 105/56; PULSE 55; RESP 25; TEMP 97.4; O2SAT 96
[2025-09-10] VITALS (8 sets, daily range): BP systolic 135–159; BP diastolic 66–87; PULSE 47–68; RESP 17–27; TEMP 97.3–98.3; O2SAT 94–98
[2025-09-10 06:20] LABS: MEAN PLATELET VOLUME 10.0 FL (7.4-10.4); RED CELL DISTRIBUTION WIDTH 14.4 % (11.5-14.5)
[2025-09-10 06:47] LABS: CREATININE 0.97 MG/DL (0.60-1.10); TOTAL CARBON DIOXIDE 19.4 MMOL/L (24-32); eCRCL 68 ML/MIN; eGFR 77 ML/MIN
[2025-09-10 07:09] LABS: BANDS% (MANUAL) 9.0 % (0-10); LYMPHOCYTES % (MANUAL) 8.0 % (21-51); METAMYLEOCYTES% (MANUAL) 1.0 % (0-0); MONOCYTES % (MANUAL) 6.0 % (2-12); NEUTROPHILS % (MANUAL) 76.0 % (42-75); PLATELET ESTIMATE DECREASED
[2025-09-10] MEDS: SINCALIDE IV ONE (15:15)
[2025-09-10] MEDS: NORMAL SALINE IV ONE (15:15)
--- NOTE | 2025-09-10 15:26 | PROGRESS NOTE- Residence ---
Progress Note - Resident Providers to CC Resident Creating Document: WILLA ISLAS RES ~ Antibiotic Timeout Antibiotic Ordered?: Yes Subjective Was seen and examined at bedside. He does not report any issues or concerns. Blood culture grew Gram-negative rods, source still unknown - Zosyn. The primary source of sepsis is still yet to be identified. Nonetheless the CT abdominal ultrasound findings are ambiguous, I am still inclined to believe the source of infection could be biliary system/. Otherwise, patient is doing well, hemodynamically stable, able to tolerate oral intake, good BM. Objective Vital Signs Date Time Temp Pulse Resp B/P (MAP) Pulse Ox O2 Delivery O2 Flow Rate FiO2 09/10/25 10:44 97.7 52 20 146/76 (99) 98 Room Air 09/10/25 08:20 0.0 General: Awake and Alert, no acute distress. HEENT: Conjunctiva pink, Sclera clear, Mucus Membranes moist. Neck: Supple without masses and tenderness. Resp: Lungs clear to auscultation bilaterally. Heart: Regular Rate and rhythm, normal S1 and S2 Abdomen: Soft and non tender no organomegaly Extremities: No cyanosis,clubbing or edema. Skin: Warm and Dry. 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 He was brought to the emergency department by EMS after being found unconscious at home last night. Today, he had reported feeling unwell own and went home from work around 4:30 p.m.. Was sitting at home, he experienced chills, rigor, profuse sweating, general malaise. Later that evening, at approximately 8:00 p.m., his daughter found him unresponsive on the floor and called EMS. Upon arrival to the ED, he was noted to be hypotensive and was subsequently admitted. This morning, the patient is hemodynamically stable and alert. Plan Plan 1. Sepsis with septic shock, POA Bacteremia; source unclear Now hemodynamically stable Presented with a low C, chills, rigors, diaphoresis; found to be hypertensive on arrival Lactic acidosis, elevated procalcitonin, hemodynamic instability Received 4 L of NS with improvement in BP and mental status Blood cultures from both arms positive Gram-negative rods consistent with true bacteremia and likely infectious source of sepsis Continue IV broad-spectrum antibiotics; Zosyn Continue IV hydration; NS 100 mL/hour Pending culture sensitivity Repeat lactate and blood cultures in 48 hours Echo negative for infective endocarditis. 2. Syncope/LOC Likely secondary to hypotension and decreased perfusion from septic shock Continue telemetry monitoring for arrhythmia EKG and troponins; ruled out cardiac etiology Non-con head CT is negative CTA negative for PE, No evidence of acute aneurysm, dissection, or intramural hematoma. 3. Transaminitis, Hepatic steatosis on CTA. Etiology likely combination of shock liver and fatty liver AST/ALT trended up Continue supportive care Monitor liver functions 4. Elevated troponins, most likely type 2 [place]/demand ischemia EKG showed: Sinus rhythm, rate 62, Continue managing sepsis Continue supportive management Sepsis with septic shock, elevated liver enzymes, and mild gallbladder distention with wall thickening on CTA which may suggest biliary stasis/inflammation. These findings raise suspicion for ascending cholangitis. I ordered the abdominal ultrasound, please follow. Continue broad-spectrum antibiotics, IV hydration, and pain management. No clear alternate infectious source (urine, lung). Gall bladder/biliary tree is on top of my differentials. 5. Acute kidney injury, most likely prerenal, renal tubular stasis, resolved Initial Creatinine elevated 1.34, now within reference ranges Continue IV hydration Monitor BMP 6. BPH, stable CTA reveals prostatomegaly Status: Full code DVT prophylaxis: Bestx Willa Islas Internal Medicine Resident, PGY-3 Date of Service: Sep 10, 2025 Billing Provider: CHASE MINOR MD Common Visit Codes: [id number] INP/OBS CARE(HIGH) WILLA ISLAS, RES Sep 10, 2025 15:26 CHASE MINOR MD Sep 11, 2025 14:42
[2025-09-10] MEDS: ondansetron/PF 4mg/2ml inj IV PRN (16:28)
[2025-09-11] VITALS (9 sets, daily range): BP systolic 134–172; BP diastolic 69–91; PULSE 45–96; RESP 14–18; TEMP 97.4–99.5; O2SAT 94–98
[2025-09-11 06:32] LABS: MEAN PLATELET VOLUME 10.4 FL (7.4-10.4); RED CELL DISTRIBUTION WIDTH 14.3 % (11.5-14.5)
[2025-09-11 07:36] LABS: CREATININE 0.88 MG/DL (0.60-1.10); TOTAL CARBON DIOXIDE 21.3 MMOL/L (24-32); eCRCL 75 ML/MIN; eGFR 86 ML/MIN
[2025-09-11 07:52] LABS: URINE AMPHETAMINE SCREEN NEGATIVE (Neg); URINE BARBITUATE SCREEN NEGATIVE (Neg); URINE BENZODIAZEPINES SCREEN NEGATIVE (Neg); URINE CANNABINOID SCREEN NEGATIVE (Neg); URINE COCAINE SCREEN NEGATIVE (Neg); URINE METHADONE SCREEN NEGATIVE (Neg); URINE OPIATE SCREEN NEGATIVE (Neg); URINE PHENCYCLIDINE SCREEN NEGATIVE (Neg)
[2025-09-11] MEDS: potassium Cl 20 mEq SR tablet PO PRN (09:07)
[2025-09-11] MEDS: NORMAL SALINE IV ONE (14:33)
[2025-09-11] MEDS: SINCALIDE IV ONE (14:33)
--- NOTE | 2025-09-11 15:37 | PROGRESS NOTE- Residence ---
Progress Note - Resident Providers to CC Resident Creating Document: BRAVO MCDONNELL, DEIRDRE ~ Antibiotic Timeout Antibiotic Ordered?: Yes Subjective patient Was seen and examined at bedside. He does not report any issues or concerns. Blood culture grew Enterobacter Aerogenes. The primary source of sepsis is still yet to be identified. Otherwise, patient is doing well, hemodynamically stable, able to tolerate oral intake, good BM. Objective Vital Signs Date Time Temp Pulse Resp B/P (MAP) Pulse Ox O2 Delivery O2 Flow Rate FiO2 09/11/25 11:15 98.1 52 14 142/88 (106) 96 Room Air 09/10/25 08:20 0.0 Result Diagram: 09/11/2553709/11/25537 General: Awake and Alert, no acute distress. HEENT: Conjunctiva pink, Sclera clear, Mucus Membranes moist. Neck: Supple without masses and tenderness. Resp: Lungs clear to auscultation bilaterally. Heart: Regular Rate and rhythm, normal S1 and S2 Abdomen: Soft and non tender no organomegaly Extremities: No cyanosis,clubbing or edema. Skin: Warm and Dry. 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 He was brought to the emergency department by EMS after being found unconscious at home last night. Today, he had reported feeling unwell own and went home from work around 4:30 p.m.. Was sitting at home, he experienced chills, rigor, profuse sweating, general malaise. Later that evening, at approximately 8:00 p.m., his daughter found him unresponsive on the floor and called EMS. Upon arrival to the ED, he was noted to be hypotensive and was subsequently admitted. This morning, the patient is hemodynamically stable and alert. Plan Plan 1. Sepsis with septic shock, POA Blood culture showed Enterobacter aerogenes Bacteremia; source unclear Now hemodynamically stable Presented with a low C, chills, rigors, diaphoresis; found to be hypertensive on arrival Lactic acidosis, elevated procalcitonin, hemodynamic instability Received 4 L of NS with improvement in BP and mental status Blood cultures from both arms positive Gram-negative rods consistent with true bacteremia and likely infectious source of sepsis Continue IV broad-spectrum antibiotics; Zosyn Continue IV hydration; NS 100 mL/hour Pending culture sensitivity Repeat lactate and blood cultures in 48 hours Echo negative for infective endocarditis. 09/11/25: Blood culture showed Enterobacter aerogenes Wbc is 20.0 Patient denies fever, chills, rigors and hemodynamically stable Abnormal gallbladder ejection fraction at 5% consistent with gallbladder dysfunction and possible chronic cholecystitis on HIDA scan. Discontinue Zosyn Started on ceftriaxone 2. Syncope/LOC likely due to Sick Sinus bradycardia Telemetry showed snus bradycardia with heart rate in between 40-60s Likely secondary to hypotension and decreased perfusion from septic shock EKG and troponins; ruled out cardiac etiology Non-con head CT is negative CTA negative for PE, No evidence of acute aneurysm, dissection, or intramural hematoma. 3. Transaminitis, Hepatic steatosis on CTA. Etiology likely combination of shock liver and fatty liver AST/ALT trended down Continue supportive care Monitor liver functions 4. Elevated troponins, most likely type 2 [place]/demand ischemia EKG showed: Sinus rhythm, rate 62, LVEF is 70% on Echo. Continue managing sepsis Continue supportive management 5. Acute kidney injury, most likely prerenal, renal tubular stasis, resolved Creatinine level down trended to normal Continue IV hydration Monitor BMP 6. BPH, stable CTA reveals prostatomegaly Status: Full code DVT prophylaxis: Lovenox Disposition: Continue broad-spectrum antibiotics, IV hydration, and pain management. No clear alternate infectious source (urine, lung). Resident attestation The above note has been reviewed and supervised by a senior resident PGY3 Patient was seen, examined and discussed with the attending physician Dee Mcdonnell MD Internal Medicine Resident, PGY 1 Date of Service: Sep 11, 2025 Billing Provider: CHASE MINOR MD Common Visit Codes: [id number] INP/OBS CARE(HIGH) BRAVO MCDONNELL, RES Sep 11, 2025 15:37 CHASE MINOR MD Sep 13, 2025 10:38
--- NOTE | 2025-09-11 16:41 | RADIOLOGY REPORT ---
HEPATOBILIARY SCINTIGRAPHY (HIDA SCAN) WITH EJECTION FRACTION REASON FOR EXAM: cholecystitis highly suspected - US and CT findings ambiguous COMPARISON: None TECHNIQUE: 5.4 mCi of technetium 99m Choletec were injected intravenously and hepatobiliary scan was performed. This was followed by slow injection of sincalide (1.9 mcg) through the IV. Dynamic cine loop and static images were reviewed on a workstation. FINDINGS: There is visualization of the biliary tree within 5 minutes and there is progressive passage of radiotracer into the small bowel as the study progresses. There is no radiotracer extravasation. The gallbladder is visualized within 10 minutes. No adverse symptoms during/after injection of CCK are documented. Gallbladder ejection fraction is estimated at 5% (normal greater than 35%). IMPRESSION: Patent cystic duct. No acute cholecystitis. Abnormal gallbladder ejection fraction at 5% consistent with gallbladder dysfunction and possible chronic cholecystitis.
[2025-09-12 02:00] VITALS: BP 155/71; PULSE 50; RESP 17; TEMP 98.1; O2SAT 95
[2025-09-12 06:30] LABS: MEAN PLATELET VOLUME 10.0 FL (7.4-10.4); RED CELL DISTRIBUTION WIDTH 13.6 % (11.5-14.5)
[2025-09-12 06:55] LABS: CREATININE 0.79 MG/DL (0.60-1.10); TOTAL CARBON DIOXIDE 25.1 MMOL/L (24-32); eCRCL 84 ML/MIN; eGFR > 90 ML/MIN
[2025-09-12 07:00] VITALS: BP 135/68; PULSE 49; RESP 14; TEMP 97.3; O2SAT 95
[2025-09-12] MEDS: CefTRIAXone/D5W-Rocephin 1gm 50 ML IV SCH (08:59)
[2025-09-12 11:00] VITALS: BP 155/78; PULSE 48; RESP 16; TEMP 98.5; O2SAT 94
[2025-09-12] MEDS ORDERED: LEVO-65 PO (13:00)
--- NOTE | 2025-09-12 18:30 | DISCHARGE SUMMARY-Residence ---
Discharge Summary Providers to CC Resident Creating Document: JUAN ESCAMILLA RES ~ Discharge Summary Admission Diagnosis: Hypotension, possible seizure, Hospital Course DATE OF ADMISSION: 09/09/25 DATE OF DISCHARGE:09/12/25 Imaging- Ultrasound abdomen- The liver is diffusely echogenic which may be secondary to steatosis or another diffuse hepatic process. Correlate clinically and with liver function tests. Cholelithiasis with mild gallbladder wall thickening and pericholecystic edema. No sonographic henriquez's sign. Findings remain concerning for possible acute versus chronic cholecystitis. Correlate clinically. Carotid ultrasound- Mild atherosclerotic disease with no hemodynamically significant stenosis. Any narrowing is less than 50%. Chest CTA- No evidence of acute aneurysm, dissection, or intramural hematoma. 2. No evidence of pulmonary embolism. 3. Mild gallbladder distention and wall thickening versus pericholecystic edema. 4. Hepatic steatosis. 5. Small sliding-type hiatal hernia. 6. Prostatomegaly. Head CT- No acute intracranial abnormality. Electrocardiogram- Normal LV size and wall thickness. Overall systolic function is normal. LVEF is 70%. Right ventricle is mildly dilated with adequate function. Elevated right heart pressures with an RVSP of 35 mmHg. The left atrium size is normal. Trileaflet AV appears mildly sclerotic without stenosis. Mild to moderate insufficiency. Mild mitral annular calcification without stenosis. Trace regurgitation. The tricuspid valve is normal in structure with mild regurgitation. Normal pericardium. No effusion. Anterior epicardial fat pad is present. HIDA scan- Patent cystic duct. No acute cholecystitis. Abnormal gallbladder ejection fraction at 5% consistent with gallbladder dysfunction and possible chronic cholecystitis. Discharge Diagnosis\Comment: Sepsis with septic shock, POA Blood culture showed Enterobacter aerogenes Syncope/LOC likely due to Sick Sinus bradycardia Transaminitis Elevated troponins, most likely type 2 NH/demand ischemia Acute kidney injury, most likely prerenal, renal tubular stasis, resolved BPH, stable Operations\Procedures: None Consultants: None Complications: None Condition on DC: Stable New Medications: Levofloxacin (Levofloxacin) 500 Mg Tablet 1 TAB PO BID for 14 Days, #28 TAB Continued Medications: Amlodipine* (Norvasc*) 2.5 Mg Tablet 2 TAB PO DAILY for 30 Days, #30 TAB Losartan Potassium* (Cozaar*) 25 Mg Tablet 4 TAB PO DAILY for 30 Days, #30 TAB Discharge Summary: 70 years old male with history of hypertension brought to the ED by EMS due to syncope. Patient reported he did not feel good and he had shivering and chills, came back home and took two ibuprofen and went to bed when he woke up he was on the floor. is on the bedside and reported they was not at home and when they came back they found him on the floor, sweating and confused they called EMS and the systolic blood pressure reported 70, no any tongue biting or urinary or stool incontinency reported. Patient got his conscious after 20-30 minutes. Patient denied any chest pain shortness of breaths abdominal pain any changing in urinary habits or bowel movement. He is taking lisinopril and amlodipine for blood pressure medication otherwise he is not taking any medication. He denied recent travel, any sick contact. Course during his hospital stay- Patient initially presented with lactic acidosis, elevated procalcitonin, was h emodynamically unstable , patient received 4 L NS, with improvement in blood pressure. His blood cultures were positive for Enterobacter aerogenes, likely the infectious source of sepsis, was treated with IV antibiotics Zosyn. His syncope, loss of consciousness most likely secondary to hypotension and decreased perfusion from septic shock. Patient on telemetry monitoring for ar rhythmia. Elevated troponins most likely due to type 2 NH demand ischemia. EKG showed sinus rhythm with a rate of 62. Patient also had acute kidney injury most likely prerenal, renal tubular stasis which was finally resolved with IV hydration. Patient had transaminitis, CTA showed hepatic steatosis. AST ALT trended down, patient was on supportive care. Patient was discharged with levofloxacin 500 mg b.i.d. for 14 days. Patient was stable at the time of discharge. Vital Signs Date Time Temp Pulse Resp B/P (MAP) Pulse Ox O2 Delivery O2 Flow Rate FiO2 09/12/25 11:00 98.5 48 16 155/78 (103) 94 Room Air 09/11/25 18:07 0 21 Laboratory Tests Test 09/11/25 05:38 09/11/25 06:45 09/12/25 05:34 White Blood Count 20.0 X10'3 11.9 X10'3 Red Blood Count 4.27 X10'6 4.47 X10'6 Hemoglobin 13.0 g/dl 13.4 g/dl Hematocrit 38.2 % 39.5 % Mean Corpuscular Volume 89.6 FL 88.3 FL Mean Corpuscular Hemoglobin 30.5 PG 30.0 PG Mean Corpuscular Hemoglobin Concent 34.0 g/dL 34.0 g/dL Red Cell Distribution Width 14.3 % 13.6 % Platelet Count 134 X10'3 149 X10'3 Mean Platelet Volume 10.4 FL 10.0 FL Neutrophils (%) (Auto) 86.6 % 77.6 % Lymphocytes (%) (Auto) 8.0 % 13.2 % Monocytes (%) (Auto) 5.0 % 7.8 % Eosinophils (%) (Auto) 0.3 % 1.1 % Basophils (%) (Auto) 0.1 % 0.3 % Neutrophils # (Auto) 17.3 X10'3 9.2 X10'3 Lymphocytes # (Auto) 1.6 X10'3 1.6 X10'3 Monocytes # (Auto) 1.0 X10'3 0.9 X10'3 Eosinophils # (Auto) 0.1 X10'3 0.1 X10'3 Basophils # (Auto) 0.0 X10'3 0.0 X10'3 CBC Comment Sodium Level 143 MMOL/L 138 MMOL/L Potassium Level 3.4 MMOL/L 3.5 MMOL/L Chloride Level 111 MMOL/L 106 MMOL/L Carbon Dioxide Level 21.3 MMOL/L 25.1 MMOL/L Anion Gap 11 7 Blood Urea Nitrogen 20 MG/DL 14 MG/DL Creatinine 0.88 MG/DL 0.79 MG/DL Estimated GFR/1.73 m2 86 ML/MIN > 90 ML/MIN BUN/Creatinine Ratio 22.7 17.7 Glucose Level 95 MG/DL 81 MG/DL Calcium Level 7.5 MG/DL 7.9 MG/DL Magnesium Level 2.0 MG/DL 1.7 MG/DL Total Bilirubin 1.0 MG/DL 1.1 MG/DL Aspartate Amino Transf (AST/SGOT) 217 U/L 105 U/L Alanine Aminotransferase (ALT/SGPT) 372 U/L 279 U/L Alkaline Phosphatase 76 IU/L 88 IU/L Total Protein 6.9 G/DL 7.1 G/DL Albumin 2.8 G/DL 2.7 G/DL Globulin 4.1 G/DL 4.4 G/DL Albumin/Globulin Ratio 0.7 0.6 Chemistry Comments Urine Opiates Screen Negative Urine Methadone Screen Negative Urine Fentanyl Screen Negative Urine Barbiturates Screen Negative Urine Phencyclidine Screen Negative Urine Amphetamines Screen Negative Urine Benzodiazepines Screen Negative Urine Cocaine Screen Negative Urine Cannabinoids Screen Negative Drug Screen Comment Physical examination of the patient during the time of discharge- General: Awake and Alert, no acute distress. HEENT: Conjunctiva pink, Sclera clear, Mucus Membranes moist. Neck: Supple without masses and tenderness. Resp: Lungs clear to auscultation bilaterally. Heart: Regular Rate and rhythm, normal S1 and S2 Abdomen: Soft and non tender no organomegaly Extremities: No cyanosis,clubbing or edema. Skin: Warm and Dry. Additional instructions by the doctor during the time of discharge- FOLLOW UP WITH PCP WITHIN A WEEK, REPEAT LABS CBC BMP AND DISCUSS WITH PCP, TAKE ANTIBIOTIC LEVAQUIN 500 BID FOR 2 WEEKS. HIDA SCAN FOR YOUR GALLBLADDER SHOWS No acute cholecystitis, possible gallstones with chronic cholecystitis. Get a referral to see a surgeon on outpatient basis. Your work up for syncope with CT head CT chest, vascular USG carotids has been negative. IF CONDITION WORSENS CALL 911 OR GO TO THE NEAREST ER IMMEDIATELY. *Problems/Diagnosis: (1) Septic shock Total Time Spent on D/C: > 30 Minutes Date of Service: Sep 12, 2025 Billing Provider: CHASE MINOR MD Common Visit Codes: 43511-CWS/OBS DISCH DAY >30min JUAN ESCAMILLA, RES Sep 12, 2025 18:19 CHASE MINOR MD Sep 13, 2025 10:38
== END 2025-09-12 14:34 | disposition home or self-care (01) | DRG 871 ==
LOC: ER 22:06 → ED HOLD 09-09 05:36 → PCU 3S 09-09 09:33
PROVIDERS: ADMIT Internal Medicine Pulmonary Disease; ATTEND Internal Medicine
PROC: B32T1ZZ Computerized Tomography (CT Scan) of Left Pulmonary Artery using Low Osmolar Contrast (ICD-10-PCS; principal; 2025-09-09)
PROC: B3201ZZ Computerized Tomography (CT Scan) of Thoracic Aorta using Low Osmolar Contrast (ICD-10-PCS; 2025-09-09)
PROC: B32S1ZZ Computerized Tomography (CT Scan) of Right Pulmonary Artery using Low Osmolar Contrast (ICD-10-PCS; 2025-09-09)
PROC: CF141ZZ Planar Nuclear Medicine Imaging of Gallbladder using Technetium 99m (Tc-99m) (ICD-10-PCS; 2025-09-11)
DX: A41.9 Sepsis, unspecified organism (principal); I21.A1 Myocardial infarction type 2; R65.21 Severe sepsis with septic shock; N17.0 Acute kidney failure with tubular necrosis; E87.20 Acidosis, unspecified; K80.10 Calculus of gallbladder with chronic cholecystitis without obstruction; R00.1 Bradycardia, unspecified; R74.01 Elevation of levels of liver transaminase levels; N40.0 Benign prostatic hyperplasia without lower urinary tract symptoms; I10 Essential (primary) hypertension; K44.9 Diaphragmatic hernia without obstruction or gangrene; K76.0 Fatty (change of) liver, not elsewhere classified; R55 Syncope and collapse; Z90.49 Acquired absence of other specified parts of digestive tract; Z87.891 Personal history of nicotine dependence
CPT/HCPCS: 36415; 70450; 71045; 71275; 74177; 76700; 78227; 80048; 80053; 80305; 80320; 81001; 81003; 82247; 82550; 82977; 83605; 83735; 84132; 84145; 84443; 84450; 84460; 84484; 85007; 85025; 85379; 86140; 87040; 87077; 87081; 87186; 93005; 93306; 93880; 96361; 96365; 96375; 99285; A9537; G0378; J0612; J0696; J1100; J1610; J1650; J2405; J2543; J2805; J3490; J7030; J7040; Q9967

== ENCOUNTER 2025-10-01 23:57 | Emergency (ER) | payer MEDICARE, OTHER ==
[~2025-10-01] VITALS: Ht 170.2 cm; Wt 85.7 kg
[~2025-10-01 23:57] MED LIST: AMLO2.5T2 PO; LOSA-415 PO
[2025-10-02 00:31] VITALS: TEMP 97.1
--- NOTE | 2025-10-02 00:40 | Physician Documentation ---
History of Present Illness General Chief Complaint: Abdominal Pain Stated Complaint: HIGH BP Time Seen by MD: 00:39 History of Present Illness Initial Comments The patient is a 70-year-old male who states over last 4 hours he has had mid abdominal pain. He states pain started gradually but his worsened to 8/10 in intensity. Patient states he took some Pepto-Bismol with no relief. Patient states he has a one bout of emesis while in the waiting room here. Patient denies any fevers or chills. The patient was admitted several weeks ago and found to be bacteremic spent a week in the hospital and was discharged. Medication Reconciliation Allergies: Coded Allergies: No Known Allergies (Unverified , 09/08/25) Scheduled Amlodipine* (Norvasc*), 2 TAB PO DAILY, (Reported) Losartan Potassium* (Cozaar*), 4 TAB PO DAILY, (Reported) Discontinued Medications Levofloxacin (Levofloxacin), 1 TAB PO BID Discontinued Reason: Auto Discontinued Past Medical History Past Medical History: Hypertension Smoking: Quit greater than 1 year Alcohol Use: Rarely Drug Use: none Review of Systems All Other Systems at this time: Reviewed and Negative Physical Exam Physical Exam Vital Signs: Temperature: 97.1, Source: Temporal, Heart Rate: 48, Respiratory Rate: 22, BP: 157/54, Pulse Oximetry: 100, Weight: 85.700 Physical Exam VITALS: Reviewed and as above. GENERAL: Alert, no apparent distress. HEENT: Normocephalic, atraumatic, PERRL, EOMI, dry mucosa, no erythema RESPIRATORY: Lungs clear, normal breath sounds, no respiratory distress. CHEST: No accessory muscle use, no retractions CV: Regular rate, rhythm, no edema, no murmur, No: JVD GI: Tender periumbilical region and slightly above that and below the epigastric region bowels sounds present, no rebound, guarding, or rigidity BACK: No CVA tenderness, or swelling MUSCULOSKELETAL: No deformities, no edema SKIN: Warm and dry, no rash NEURO: Oriented x4, No motor or sensory deficit PSYCH: Normal mood and affect, no agitation Progress Results/Orders Results/Orders Orders - O[facility]PAGE GRECO MD Urinalysis, Cult If Indicated (10/02/25 00:37) Ct Abdomen Pelvis (10/02/25 01:52) Completed Orders - [facility]PAGE GRECO MD Cbc/Diff (10/02/25 00:37) BMP (10/02/25 00:37) Lipase (10/02/25 00:37) CMP (10/02/25 00:37) Electrocardiogram (10/02/25 00:37) Procalcitonin (10/02/25 01:20) Normal Saline 1000ml (0.9% Sodium Chlori (10/02/25 01:20) Morphine 4mg/Ml Inj. (Morphine Inj.) (10/02/25 01:20) Ondansetron Inj. (Zofran 4mg/2ml Vial) (10/02/25 01:20) Ct Abdomen Pelvis (10/02/25 01:52) Iohexol 300mg/Ml 100ml Inj. (Omnipaque-3 (10/02/25 02:11) Medications Received in ER Medications (Trade) Dose Ordered Sig/[place] Route PRN Reason Start Time Stop Time Status Last Admin Dose Admin (0.9% sodium chloride (NS) 1000ml IV soln) 1,000 ml ONCE ONCE IVB 10/02/25 01:20 10/02/25 01:21 DC 10/02/25 01:59 1,000 ML (morphine inj.) 4 mg ONCE ONCE IV 10/02/25 01:20 10/02/25 01:21 DC 10/02/25 01:59 4 MG (Zofran 4mg/2ml vial) 4 mg ONCE ONCE IV 10/02/25 01:20 10/02/25 01:21 DC 10/02/25 01:58 4 MG Vital Signs 10/02/25 10/02/25 00:31 00:50 Temp 97.1 Pulse 48 49 Resp 22 18 B/P (MAP) 157/54 176/77 (110) Pulse Ox 100 99 Laboratory Tests Test 10/02/25 01:05 White Blood Count 6.6 Red Blood Count 3.31 L Hemoglobin 9.6 L Hematocrit 29.2 L Mean Corpuscular Volume 88.1 Mean Corpuscular Hemoglobin 29.1 Mean Corpuscular Hemoglobin Concent 33.0 Red Cell Distribution Width 15.6 H Platelet Count 300 Mean Platelet Volume 8.4 Neutrophils (%) (Auto) 69.8 Lymphocytes (%) (Auto) 19.7 L Monocytes (%) (Auto) 8.5 Eosinophils (%) (Auto) 0.8 Basophils (%) (Auto) 1.2 H Neutrophils # (Auto) 4.6 Lymphocytes # (Auto) 1.3 Monocytes # (Auto) 0.6 Eosinophils # (Auto) 0.1 Basophils # (Auto) 0.1 CBC Comment Sodium Level 138 Potassium Level 3.8 Chloride Level 104 Carbon Dioxide Level 28.3 Anion Gap 6 L Blood Urea Nitrogen 24 H Creatinine 0.81 Estimated GFR/1.73 m2 > 90 BUN/Creatinine Ratio 29.6 H Glucose Level 135 H Calcium Level 8.8 Total Bilirubin 0.4 Aspartate Amino Transf (AST/SGOT) 22 Alanine Aminotransferase (ALT/SGPT) 31 Alkaline Phosphatase 74 Total Protein 7.6 Albumin 3.3 L Globulin 4.3 Albumin/Globulin Ratio 0.8 L Lipase 29 Procalcitonin < 0.05 Chemistry Comments EKG/XRAY/CT/US/VASC/MRI CT : Impression Patient: KATHERIN CARREON Medical Record: [id number] ELIZABETH FLORENCE : 1955, Age: 70 Sex: Male Location: ER Patient Status: [facility] ER Service Date/Time: 10/02/25151 Ordering Physician: PAGE GARZA MD Exam: CT ABDOMEN PELVIS Exam: CT CT ABDOMEN PELVIS W/ IV CONTRAST History: abdominal pain COMPARISON: US ULTRASOUND OF ABDOMEN on DOS: 09/09/25, CT CTA CHEST CT ABD PELVIS W/ IV CONTRAST on DOS: 09/09/25 Technique: Multidetector spiral CT of the abdomen and pelvis was performed from lung bases to pubic symphysis. Intravenous contrast was administered during this examination. Portal venous imaging was obtained. Axial, coronal and sagittal multiplanar reformats were performed by the technologist on a separate workstation. Radiation Dose : 1. Abdomen/Pelvis: CTDIvol 29.33 mGy, DLP 1603.00 mGy*cm. CONTRAST: Type of contrast: Omnipaque 300 Contrast injected: 100 ml Lung Bases: No acute or significant lung base finding. Moderate posterior bibasilar atelectasis. Normal heart size. No pleural or pericardial effusion. Liver: The liver is normal in size. No focal lesions. Hepatic steatosis. Normal hepatic vascular enhancement. Gallbladder and Biliary Tree: Mild gallbladder distention. Spleen: Unremarkable Pancreas: The pancreas is normal in appearance without focal lesions or abnormal enhancement. Adrenal Glands: Unremarkable Kidneys: No hydronephrosis. Bladder: Unremarkable Bowel: Small sliding-type hiatal hernia. The stomach is grossly normal in appearance. Small bowel and colon are normal in caliber and distribution. The appendix is not visualized; however, no secondary findings of acute appendicitis identified. Ascites: Absent Lymphadenopathy: No mesenteric, retroperitoneal or periportal lymphadenopathy. Abdominal Wall and Mesentery: Unremarkable. Vasculature: The visualized abdominal aorta is normal in size and caliber. Atherosclerotic vascular calcifications. Abdominal and pelvic vessels demonstrate normal enhancement. Pelvic Organs: The prostate is enlarged, measuring 5.0 cm transverse. Musculoskeletal: No aggressive focal bony lesions, acute fractures or dislocation. IMPRESSION: 1. No acute abdominal or pelvic finding. 2. Mild nonspecific gallbladder distention. 3. Small sliding-type hiatal hernia. 4. Prostatomegaly. Radiation optimization: All CT scans at this facility use at least one of these dose optimization techniques: automated exposure control mA and/or kV adjustment per patient size (includes targeted exams where dose is matched to clinical indication) or iterative reconstruction. Electronically Signed by:JAMEY URIBE MD Date & Time: 10/02/25323 Dictated by: JAMEY URIBE MD Dictation date and time: 10/02/25323 Primary Care Provider: NO PRIMARY CARE PROVIDER cc: PAGE GARZA MD ~ Departure Time of Disposition: 04:13 Disposition: 01 HOME / SELF CARE / HOMELESS Impression: Primary Impression: Abdominal pain Qualified Codes: R10.13 - Epigastric pain Additional Impression: Vomiting Qualified Codes: R11.2 - Nausea with vomiting, unspecified Discharge Instructions: Abdominal Pain (Nonspecific) Additional Instructions: Drink plenty of fluids, use the Zofran as needed for nausea. If your symptoms worsen return to the emergency department for further evaluation. Follow up with your healthcare providers soon as possible. Referrals: NO PRIMARY CARE PROVIDER (PCP) PAGE GARZA MD Oct 02, 2025 00:40
--- NOTE | 2025-10-02 00:52 | ELECTROCARDIOGRAPH REPORT ---
[facility] Test Date: 2025-10-02 Test Time: 00:49:20 Pat Name: KATHERIN CARREON Department: [facility]- Patient ID: [facility]-[id number] Room: Gender: M Guidance Counselor: : 1955 Requested By: PAGE GARZA Order Number: [id number] Reading MD: Measurements Intervals [place] Rate: 49 P: 34 NC: 161 QRS: 16 QRSD: 108 T: 27 QT: 464 QTc: 419 Interpretive Statements Sinus bradycardia Abnormal R-wave progression, early transition Please click the below link to view image of tracing.
[2025-10-02 01:16] LABS: MEAN PLATELET VOLUME 8.4 FL (7.4-10.4); RED CELL DISTRIBUTION WIDTH 15.6 % (11.5-14.5)
[2025-10-02 01:32] LABS: CREATININE 0.81 MG/DL (0.60-1.10); TOTAL CARBON DIOXIDE 28.3 MMOL/L (24-32); eCRCL 82 ML/MIN; eGFR > 90 ML/MIN
[2025-10-02] MEDS: ondansetron/PF 4mg/2ml inj IV ONE (01:58)
[2025-10-02] MEDS: morphine 4 MG/ML inj SYRINge IV ONE (01:59)
[2025-10-02] MEDS: normal saline 1000ML IV soln IVB ONE (01:59)
[2025-10-02] MEDS ORDERED: iohexol 300mg/ml 100ml inj. ONE (02:11)
--- NOTE | 2025-10-02 03:27 | RADIOLOGY REPORT ---
Exam: CT CT ABDOMEN PELVIS W/ IV CONTRAST History: abdominal pain COMPARISON: US ULTRASOUND OF ABDOMEN on DOS: 09/09/25, CT CTA CHEST CT ABD PELVIS W/ IV CONTRAST on DOS: 09/09/25 Technique: Multidetector spiral CT of the abdomen and pelvis was performed from lung bases to pubic symphysis. Intravenous contrast was administered during this examination. Portal venous imaging was obtained. Axial, coronal and sagittal multiplanar reformats were performed by the technologist on a separate workstation. Radiation Dose : 1. Abdomen/Pelvis: CTDIvol 29.33 mGy, DLP 1603.00 mGy*cm. CONTRAST: Type of contrast: Omnipaque 300 Contrast injected: 100 ml Lung Bases: No acute or significant lung base finding. Moderate posterior bibasilar atelectasis. Normal heart size. No pleural or pericardial effusion. Liver: The liver is normal in size. No focal lesions. Hepatic steatosis. Normal hepatic vascular enhancement. Gallbladder and Biliary Tree: Mild gallbladder distention. Spleen: Unremarkable Pancreas: The pancreas is normal in appearance without focal lesions or abnormal enhancement. Adrenal Glands: Unremarkable Kidneys: No hydronephrosis. Bladder: Unremarkable Bowel: Small sliding-type hiatal hernia. The stomach is grossly normal in appearance. Small bowel and colon are normal in caliber and distribution. The appendix is not visualized; however, no secondary findings of acute appendicitis identified. Ascites: Absent Lymphadenopathy: No mesenteric, retroperitoneal or periportal lymphadenopathy. Abdominal Wall and Mesentery: Unremarkable. Vasculature: The visualized abdominal aorta is normal in size and caliber. Atherosclerotic vascular calcifications. Abdominal and pelvic vessels demonstrate normal enhancement. Pelvic Organs: The prostate is enlarged, measuring 5.0 cm transverse. Musculoskeletal: No aggressive focal bony lesions, acute fractures or dislocation. IMPRESSION: 1. No acute abdominal or pelvic finding. 2. Mild nonspecific gallbladder distention. 3. Small sliding-type hiatal hernia. 4. Prostatomegaly. Radiation optimization: All CT scans at this facility use at least one of these dose optimization techniques: automated exposure control mA and/or kV adjustment per patient size (includes targeted exams where dose is matched to clinical indication) or iterative reconstruction.
[2025-10-02] MEDS ORDERED: ONDA-243 PO (04:15)
[2025-10-02 06:36] VITALS: BP 106/53; PULSE 50; RESP 12; O2SAT 96
== END 2025-10-02 06:46 | disposition home or self-care (01) ==
LOC: ER 23:57
DX: R10.13 Epigastric pain (principal); R11.10 Vomiting, unspecified; I10 Essential (primary) hypertension; Z79.899 Other long term (current) drug therapy
CPT/HCPCS: 36415; 74177; 80053; 83690; 84145; 85025; 93005; 96361; 96374; 96375; 99285; J2270; J2405; J7030; Q9967